=== PATIENT | female | born 1945 | race Caucasian/White ===

== ENCOUNTER 2019-08-11 13:15 | Emergency (ER) | payer OTHER ==
[~2019-08-11] VITALS: Ht 162.6 cm; Wt 55.3 kg
[2019-08-11 13:30] VITALS: BP 173/84
[2019-08-11] MEDS ORDERED: CYCL-1 PO (14:11)
== END 2019-08-11 14:20 | disposition home or self-care (01) ==
LOC: ER 13:16
DX: S16.1XXA Strain of muscle, fascia and tendon at neck level, initial encounter (principal); S39.012A Strain of muscle, fascia and tendon of lower back, initial encounter; G89.29 Other chronic pain; Z98.890 Other specified postprocedural states; Z88.5 Allergy status to narcotic agent; Z88.6 Allergy status to analgesic agent; Z88.8 Allergy status to other drugs, medicaments and biological substances; Z79.899 Other long term (current) drug therapy; V89.2XXA Person injured in unspecified motor-vehicle accident, traffic, initial encounter; Y93.89 Activity, other specified; Y92.410 Unspecified street and highway as the place of occurrence of the external cause; Y99.8 Other external cause status
CPT/HCPCS: 99284

== ENCOUNTER 2020-09-28 08:44 | Day surgery (SDC) | payer MEDICARE, BC ==
[~2020-09-28] VITALS: Ht 162.6 cm; Wt 51.4 kg
[~2020-09-28 08:44] MED LIST: CYCL-1 PO; ONDA4TAB12 PO
[2020-09-28] MEDS ORDERED: LIDOcaine Viscous 15ml cup ONE (08:56)
[2020-09-28] MEDS ORDERED: MIDAZolam 1 MG/ML 5ML VIAL ONE (08:56)
[2020-09-28] MEDS ORDERED: fentaNYL/PF 50MCG/1 ML 2ML syringe ONE (08:56)
[2020-09-28 09:00] VITALS: BP 149/98
[2020-09-28] MEDS ORDERED: PANT-47 PO (09:20)
[2020-09-28] MEDS ORDERED: HYDR-3972 PO (09:20)
[2020-09-28] MEDS ORDERED: ONDA4TAB6 PO (09:20)
[2020-09-28] MEDS ORDERED: MORP-92 PO (09:20)
[2020-09-28] MEDS ORDERED: LISI40TA13 PO (09:20)
[2020-09-28] MEDS ORDERED: METO5TAB85 PO (09:20)
[2020-09-28 10:20] VITALS: BP 104/62
[2020-09-28 10:30] VITALS: BP 104/60
[2020-09-28 10:40] VITALS: BP 112/69
[2020-09-28 10:50] VITALS: BP 125/68
== END 2020-09-28 11:10 | disposition home or self-care (01) ==
LOC: GI LAB 08:44
PROVIDERS: ATTEND Internal Medicine Gastroenterology
DX: R10.10 Upper abdominal pain, unspecified (principal); R12 Heartburn; K21.00 Gastro-esophageal reflux disease with esophagitis, without bleeding; K31.89 Other diseases of stomach and duodenum; Z88.5 Allergy status to narcotic agent; Z88.8 Allergy status to other drugs, medicaments and biological substances
CPT/HCPCS: 43239; G0500; J2250; J3010; J7040; 99152; A4620